=== PATIENT | male | born 1960 | race Hispanic/Latino ===

== ENCOUNTER 2018-03-07 08:12 | Emergency (ER) | payer OTHER ==
[~2018-03-07 08:12] MED LIST: LISINOPRIL20 M1 PO; MAVYRET 100-401 EACH PO; MELOXICAM15 M1 PO; STIOLTO RESPIMAT4 GM PO; TRIAMCINOLONE A60 ML TOP; [UNRECOGNIZED DRUG - OTHER]
--- NOTE | 2018-03-07 08:23 | ED MVC/FALL/TRAUMA COMPLAINT ---
History of Present Illness General Chief Complaint: General Adult Stated Complaint: LEFT SIDE RIB PAIN S/P FALL 12 STAIRS/CP Source: patient, family Exam Limitations: no limitations Vital Signs & Intake/Output Vital Signs & Intake/Output Vital Signs Date Time Temp Pulse Resp B/P B/P Pulse O2 O2 Flow FiO2 Mean Ox Delivery Rate 03/07 1231 98.6 75 20 136/75 98 Room Air 03/07 1026 98.8 60 20 140/75 99 Room Air 03/07 0821 97.0 71 18 123/72 98 Room Air Allergies Coded Allergies: codeine (Severe, NAUSEA 08/07/17) Reconcile Medications Lisinopril 20 MG TABLET 1 TAB PO DAILY HEART (Reported) Meloxicam 15 MG TABLET 1 TAB PO DAILY PAIN (Reported) Tiotropium Br/Olodaterol HCl (Stiolto Respimat Inhal [place]) 2.5 MCG-2.5 MCG/ ACTUATION MIST.INHAL 1 INH PO DAILY BREATHING PROBLEMS (Reported) Triage Nurses Notes Reviewed? yes Onset: Abrupt Duration: minute(s): Timing: single episode today Severity: moderate Injuries/Fall Location: chest, back Method of Injury: fall Loss of Consciousness: no loss of consciousness HPI: 57YO male with hx of HTN, hep C presents to ED after fall down a flight of stairs about 15 minutes prior to arrival. Patient is primarily uzbek speaking and his daughter is present who translates for him. Patient landed primarily on left side and is reporting left sided rib cage pain, worse with inspiration. Paitent also notes left back pain. The patient states he slipped on the carpet which caused him to fall. The patient denies head strike or LOC. The patient reports left elbow pain. The patient was admitted in the psych unit at [place] up until 2 days ago and he is taking a new medication which makes him weak, he believes this contributed to his fall, unknown name medication. Daughter states that the patient has not yet filled this prescription so he has been off the new med for 2 days since discharge from [place]. The patient denies headache, neck pain , abdominal pain, nausea. (Gilma NICK,Charlette Barry) Past History Travel History Traveled to [place] past 21 day No Medical History Any Pertinent Medical History? 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 No (Charlette Fihser) Review of Systems Review of Systems Constitutional: Reports: see HPI. Eyes: Reports: no symptoms. Ears, Nose, Throat, Mouth: Reports: no symptoms. Respiratory: Reports: see HPI. Cardiovascular: Reports: no symptoms. Gastrointestinal/Abdominal: Reports: no symptoms. Genitourinary: Reports: no symptoms. Musculoskeletal: Reports: see HPI. Skin: Reports: no symptoms. Neurological/Psychological: Reports: no symptoms. All Other Systems: Reviewed and Negative (Charlette Fisher) Physical Exam Physical Exam General Appearance: well developed/nourished, no apparent distress, alert, awake Head: atraumatic, normal appearance Eyes: Bilateral: normal appearance, PERRL, EOMI. 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 No CVA/TIA Diagnosis No Sepsis Present: No Sepsis Focused Exam Completed? No (Charlette Fisher) Progress Differential Diagnosis: aoritic dissection, abd injury, C/T/L spine injury, ext injury, ICH, pelvis injury, pnemothorax, spinal cord injury, ELECTROLYTE ABNORMALITY, ADVERSE MEDICATION REACTION, ANEMIA Plan of Care: Orders Procedure Date/time Status URINE DRUG SCREEN FOR ER ONLY 03/07 833 Complete URINALYSIS 03/07 833 Complete TROPONIN LEVEL 03/07 833 Complete ETHANOL 03/07 833 Complete COMPREHENSIVE METABOLIC PANEL 03/07 833 Complete CBC WITHOUT DIFFERENTIAL 03/07 833 Complete EKG 03/07 814 Active Laboratory Tests 03/07/18 1005: Urine Opiates Screen < 100, Methadone Screen < 40, Barbiturate Screen < 60, Ur Phencyclidine Scrn < 6.00, Amphetamines Screen < 100, U Benzodiazepines Scrn < 85, Urine Cocaine Screen < 50, Urine Cannabis Screen > 80.00 H, Urine Color YEL , Urine Clarity CLEAR, Urine pH 6.5, Ur Specific [place] <= 1.005, Urine Protein NEG, Urine Ketones NEG, Urine Nitrite NEG, Urine Bilirubin NEG, Urine Urobilinogen 0.2, Ur Leukocyte Esterase NEG, Ur Microscopic EXAM NOT REQUIRED, Urine Hemoglobin NEG, Urine Glucose NEG 03/07/18 0840: Anion Gap 9, Estimated GFR > 60, BUN/Creatinine Ratio 24.3, Glucose 129 H, Calcium 8.5, Total Bilirubin 0.5, AST 36, ALT 53, Alkaline Phosphatase 152 H, Troponin I < 0.01, Total Protein 6.0 L, Albumin 3.5, Globulin 2.5, Albumin/ Globulin Ratio 1.4, CBC w Diff NO MAN DIFF REQ, RBC 4.29 L, MCV 89.3, MCH 30.9, MCHC 34.6, RDW 13.1, MPV 10.8 H, Gran % 60.0, Lymphocytes % 20.9, Monocytes % 15.0 H, Eosinophils % 3.1, Basophils % 1.0, Absolute Granulocytes 4.3, Absolute Lymphocytes 1.5, Absolute Monocytes 1.1 H, Absolute Eosinophils 0.2, Absolute Basophils 0.1, Serum Alcohol < 10.[address] images are stable at this time. Labs are stable. Patient is sitting on stretcher in no acute distress. He is able to ambulate here in the emergency department without abnormality. Patient is comfortable going home at this time, pain is well controlled. The patient was seen and evaluated by Dr. Kulkarni who agrees with the plan of care. Diagnostic Imaging: Viewed by Me: CT Scan. Discussed w/RAD: CT Scan. Radiology Impression: PATIENT: LAMONT NUÑEZ PRESENT AGE: 57 PATIENT ACCOUNT NO: [id number] : 61 LOCATION: [facility] ORDERING PHYSICIAN: Charlette NICK SERVICE DATE: 03/07/18 EXAM TYPE: CAT - CT CERV SPINE WO IV CONTRAST; CT HEAD WO IV CONTRAST EXAMINATION: CT HEAD WITHOUT CONTRAST CT CERVICAL SPINE WITHOUT CONTRAST CLINICAL INFORMATION: Fall. Assess for intracranial hemorrhage or fracture. COMPARISON: None. TECHNIQUE: Multidetector CT imaging of the head and cervical spine was performed without the use of intravenous contrast. Coronal and sagittal reformatted images were generated at the technologist workstation. DLP: 983.11 mGy-cm. FINDINGS: CT head : There is no evidence of acute intracranial hemorrhage or territorial infarction. No abnormal mass-effect or midline shift is seen. Redman to white matter differentiation is well preserved. No extra-axial fluid collections are identified. The ventricles are normal in size. There is no abnormal attenuation within the brain parenchyma. There are no acute osseous findings. There are no large scalp contusions or hematomas. The mastoid air cells are well-aerated. There is minimal mucoperiosteal thickening in the anterior ethmoid sinuses bilaterally. There is mild hyperostosis frontalis interna and there are coarse calcifications the anterior falx. CT cervical spine: There is reversal of the cervical lordosis which is nonspecific and may be consistent with positioning or muscle spasm. There is narrowing of intervertebral disc height at C6-C7 with prominent right-sided marginal osteophytes. Vertebral body heights are maintained and no fractures our demonstrated. The lateral masses of C1 and C2 are normally aligned and the dens appears intact. There is normal alignment of the atlantooccipital articulations. The paravertebral structures are unremarkable. The imaged lung apices are clear. IMPRESSION: 1. There are no acute bleeds or territorial infarcts. There are no fractures or scalp contusions. No masses are demonstrated. 2. There are no acute fractures or subluxations in the cervical spine. 3. There are spondylitic changes at C6-C7. DICTATED BY: Dutch Perkins MD DATE/TIME DICTATED:03/07/181034 HAIR BLENDER :KRIS DATE/TIME TRANSCRIBED:03/07/181034 CONFIDENTIAL, DO NOT COPY WITHOUT APPROPRIATE AUTHORIZATION. <Electronically signed in Other Vendor System> SIGNED BY: Dutch Perkins MD 03/07/18 1046, PATIENT: LAMONT NUÑEZ PRESENT AGE: 57 PATIENT ACCOUNT NO: [id number] : LOCATION: [facility] ORDERING PHYSICIAN: Charlette NICK SERVICE DATE: 03/07/181860 EXAM TYPE: CAT - CT ABD & PELVIS W/O IV CONTRAS; CT CHEST WO IV CONTRAST EXAMINATION: CT CHEST WITHOUT CONTRAST CT ABDOMEN AND PELVIS WITHOUT CONTRAST CLINICAL INFORMATION: Status post fall downstairs. Assess for fracture, trauma or splenic injury. COMPARISON: CT scan of the abdomen and pelvis and CTA of the chest, abdomen and pelvis 08/07/2017. CT scan of the chest 06/11/2012. TECHNIQUE: Multidetector volumetric imaging was performed from the thoracic inlet through the pubic symphysis without intravenous or oral contrast. Sagittal and coronal reformatted images were obtained on the technologist's workstation. Axial MIP volume rendering provided. DLP: 436.21 mGy-cm. FINDINGS: CHEST: LUNGS: The lung nelson are moderately well-expanded. Linear opacities at the bases are consistent with atelectasis. There are no contusions or areas of focal consolidation. MEDIASTINUM: The thyroid gland appears normal. The central airways are patent. There is no hilar or mediastinal lymphadenopathy. The esophagus appears normal. The heart is not enlarged. PERICARDIUM/PLEURA: There are no pleural or pericardial effusions. CHEST WALL/AXILLA: There is irregularity of the lateral left lateral seventh and sixth ribs, consistent sequelae of prior trauma, demonstrated on prior imaging. There are no large chest wall hematomas, and there are no radiopaque foreign bodies. There are surgical clips around the proximal thoracic aorta, demonstrated on prior imaging. ABDOMEN/PELVIS: LIVER, GALLBLADDER, BILIARY TREE: The liver is normal in size, shape, and attenuation. No focal hepatic lesion or biliary ductal dilatation is present. The gallbladder is well-distended. Radiodense calculi are noted dependently toward the gallbladder neck, unchanged. There is no pericholecystic fluid. PANCREAS: Unremarkable. SPLEEN: The spleen has normal contour. There is a small focus of low attenuation in the central spleen, demonstrated on prior imaging. No perisplenic abnormal densities or fluid are noted. ADRENAL GLANDS: The adrenal glands are not enlarged. KIDNEYS AND URETERS: The kidneys are normal in size, shape, and attenuation. No hydronephrosis or hydroureter or calculi are seen. There is no perinephric stranding. BLADDER: The urinary bladder is moderately distended. GASTROINTESTINAL TRACT: The small and large bowel are unremarkable. The appendix is unremarkable. ABDOMINAL WALL: No hernia is demonstrated. LYMPH NODES: There is mild increased density in the mesenteric fat, which is nonspecific. There are multiple clips in the left groin , unchanged. There is no pelvic, abdominal or retroperitoneal lymphadenopathy. VASCULAR: As described above there are surgical clips around the proximal thoracic aorta. There are atheromatous calcifications of the distal abdominal aorta and there are calcifications in the iliac arteries. No aneurysms are demonstrated. PELVIC VISCERA: The prostate gland is not enlarged. There is no free fluid in the pelvis. OSSEOUS STRUCTURES: There is anatomic alignment of the vertebral bodies in the thoracic and lumbar spines. There is narrowing of intervertebral disc height with marginal osteophytes at T8-T9 and T9-T10. Vertebral body heights are maintained and there are no compression fractures. There are multilevel degenerative changes in the thoracic spine. There is slight irregularity of the superior margin of the left acetabulum, consistent with posttraumatic or degenerative changes. IMPRESSION: 1. There are no acute cardiopulmonary findings. There are sequelae of old traumatic changes in the left lateral ribs. 2. An area of low attenuation in the spleen was present on prior imaging. There is no perisplenic fluid. 3. Gallstones without evidence of acute cholecystitis are redemonstrated. 4. There is mild increased density in the mesenteric fat which is nonspecific. DICTATED BY: Dutch Perkins MD DATE/TIME DICTATED:03/07/181100 HAIR BLENDER:KRIS DATE/TIME TRANSCRIBED:1100 CONFIDENTIAL, DO NOT COPY WITHOUT APPROPRIATE AUTHORIZATION. < Electronically signed in Other Vendor System> SIGNED BY: Dutch Perkins MD 1125 Initial ED EKG: SINUS RHYTHM @67BPM Prior EKG: changed (08/07/17 - BRADYCARDIA) (Gilma NICK,Charlette Barry) Departure Departure Disposition: HOME OR SELF CARE Condition: Stable Clinical Impression Primary Impression: Fall Qualifiers: Encounter type: initial encounter Qualified Code: W19.XXXA - Unspecified fall, initial encounter Referrals: Dunia Artis APRN (PCP/Family) Additional Instructions: You may take Tylenol or ibuprofen as prescribed as needed for your pain. Follow -up with your primary care physician. Return if have any worsening symptoms or concerns including increasing pain, difficulty breathing, headache, vomiting, coughing up mucus or blood. Please note that there might be incidental findings in your evaluation that are unrelated to the current emergency department visit. Please notify your primary care doctor about this emergency department visit in order to obtain and review all of the testing performed so that these incidental findings can be monitored as needed. If you had an x-ray performed, please understand that some fractures may not be seen on the initial set of x-rays. If your symptoms persist you might need a repeat set of x-rays to check for such a fracture. If you had a laceration evaluated, please understand that foreign bodies such as glass or wood may not be visible to the naked eye or on plain x-rays. If the wound becomes red, swollen, increasingly more painful or if there is any drainage from the wound, please have it reevaluated by a physician for the possibility of a retained foreign body. If you're unable to follow up as outlined in the discharge instructions please return to the emergency department. Thank you for choosing the [facility] Emergency Department for your care. It was a pleasure to serve you today. Departure Forms: Customer Survey General Discharge Information (Gilma NICK,Charlette Barry) PA/ARMATURE VARNISHER Co-Sign Statement Statement: ED Attending supervision documentation- [X] I saw and evaluated the patient. I have also reviewed all the pertinent lab results and diagnostic results. I agree with the findings and the plan of care as documented in the PA's/ARMATURE VARNISHER's documentation. [] I have reviewed the ED Record and agree with the PA's/ARMATURE VARNISHER's documentation. [] Additions or exceptions (if any) to the PAs/ARMATURE VARNISHER's note and plan are summarized below: [] (Greg Kulkarni DO
[2018-03-07 08:49] LABS: ABSOLUTE BASOPHIL COUNT 0.1 /CUMM (0.0-0.2); ABSOLUTE EOSINOPHIL COUNT 0.2 /CUMM (0.0-0.7); ABSOLUTE GRANULOCYTE CT 4.3 /CUMM (1.4-6.5); ABSOLUTE LYMPH COUNT 1.5 /CUMM (1.2-3.4); ABSOLUTE MONOCYTE COUNT 1.1 /CUMM (0.10-0.60); EOSINOPHIL % 3.1 % (0-5); HEMATOCRIT 38.3 % (42-52); MEAN CORPUSCULAR HGB 30.9 PG (27.0-31.0); MEAN CORPUSCULAR HGB CONC 34.6 G/DL (33.0-37.0); MEAN CORPUSCULAR VOLUME 89.3 FL (80.0-94.0); MEAN PLATELET VOLUME 10.8 FL (7.4-10.4); PLATELET COUNT 114 /CUMM (130-400); RBC DISTRIBUTION WIDTH 13.1 % (11.5-14.5); RED BLOOD CELL CT 4.29 /CUMM (4.70-6.10); WHITE BLOOD CELL COUNT 7.2 /CUMM (4.8-10.8)
--- NOTE | 2018-03-07 10:46 | CT SCAN REPORT ---
EXAMINATION: CT HEAD WITHOUT CONTRAST CT CERVICAL SPINE WITHOUT CONTRAST CLINICAL INFORMATION: Fall. Assess for intracranial hemorrhage or fracture. COMPARISON: None. TECHNIQUE: Multidetector CT imaging of the head and cervical spine was performed without the use of intravenous contrast. Coronal and sagittal reformatted images were generated at the technologist workstation. DLP: 983.11 mGy-cm. FINDINGS: CT head: There is no evidence of acute intracranial hemorrhage or territorial infarction. No abnormal mass-effect or midline shift is seen. Redman to white matter differentiation is well preserved. No extra-axial fluid collections are identified. The ventricles are normal in size. There is no abnormal attenuation within the brain parenchyma. There are no acute osseous findings. There are no large scalp contusions or hematomas. The mastoid air cells are well-aerated. There is minimal mucoperiosteal thickening in the anterior ethmoid sinuses bilaterally. There is mild hyperostosis frontalis interna and there are coarse calcifications the anterior falx. CT cervical spine: There is reversal of the cervical lordosis which is nonspecific and may be consistent with positioning or muscle spasm. There is narrowing of intervertebral disc height at C6-C7 with prominent right-sided marginal osteophytes. Vertebral body heights are maintained and no fractures our demonstrated. The lateral masses of C1 and C2 are normally aligned and the dens appears intact. There is normal alignment of the atlantooccipital articulations. The paravertebral structures are unremarkable. The imaged lung apices are clear. IMPRESSION: 1. There are no acute bleeds or territorial infarcts. There are no fractures or scalp contusions. No masses are demonstrated. 2. There are no acute fractures or subluxations in the cervical spine. 3. There are spondylitic changes at C6-C7.
--- NOTE | 2018-03-07 11:25 | CT SCAN REPORT ---
EXAMINATION: CT CHEST WITHOUT CONTRAST CT ABDOMEN AND PELVIS WITHOUT CONTRAST CLINICAL INFORMATION: Status post fall downstairs. Assess for fracture, trauma or splenic injury. COMPARISON: CT scan of the abdomen and pelvis and CTA of the chest, abdomen and pelvis 08/07/2017. CT scan of the chest 06/11/2012. TECHNIQUE: Multidetector volumetric imaging was performed from the thoracic inlet through the pubic symphysis without intravenous or oral contrast. Sagittal and coronal reformatted images were obtained on the technologist's workstation. Axial MIP volume rendering provided. DLP: 436.21 mGy-cm. FINDINGS: CHEST: LUNGS: The lung nelson are moderately well-expanded. Linear opacities at the bases are consistent with atelectasis. There are no contusions or areas of focal consolidation. MEDIASTINUM: The thyroid gland appears normal. The central airways are patent. There is no hilar or mediastinal lymphadenopathy. The esophagus appears normal. The heart is not enlarged. PERICARDIUM/PLEURA: There are no pleural or pericardial effusions. CHEST WALL/AXILLA: There is irregularity of the lateral left lateral seventh and sixth ribs, consistent sequelae of prior trauma, demonstrated on prior imaging. There are no large chest wall hematomas, and there are no radiopaque foreign bodies. There are surgical clips around the proximal thoracic aorta, demonstrated on prior imaging. ABDOMEN/PELVIS: LIVER, GALLBLADDER, BILIARY TREE: The liver is normal in size, shape, and attenuation. No focal hepatic lesion or biliary ductal dilatation is present. The gallbladder is well-distended. Radiodense calculi are noted dependently toward the gallbladder neck, unchanged. There is no pericholecystic fluid. PANCREAS: Unremarkable. SPLEEN: The spleen has normal contour. There is a small focus of low attenuation in the central spleen, demonstrated on prior imaging. No perisplenic abnormal densities or fluid are noted. ADRENAL GLANDS: The adrenal glands are not enlarged. KIDNEYS AND URETERS: The kidneys are normal in size, shape, and attenuation. No hydronephrosis or hydroureter or calculi are seen. There is no perinephric stranding. BLADDER: The urinary bladder is moderately distended. GASTROINTESTINAL TRACT: The small and large bowel are unremarkable. The appendix is unremarkable. ABDOMINAL WALL: No hernia is demonstrated. LYMPH NODES: There is mild increased density in the mesenteric fat, which is nonspecific. There are multiple clips in the left groin, unchanged. There is no pelvic, abdominal or retroperitoneal lymphadenopathy. VASCULAR: As described above there are surgical clips around the proximal thoracic aorta. There are atheromatous calcifications of the distal abdominal aorta and there are calcifications in the iliac arteries. No aneurysms are demonstrated. PELVIC VISCERA: The prostate gland is not enlarged. There is no free fluid in the pelvis. OSSEOUS STRUCTURES: There is anatomic alignment of the vertebral bodies in the thoracic and lumbar spines. There is narrowing of intervertebral disc height with marginal osteophytes at T8-T9 and T9-T10. Vertebral body heights are maintained and there are no compression fractures. There are multilevel degenerative changes in the thoracic spine. There is slight irregularity of the superior margin of the left acetabulum, consistent with posttraumatic or degenerative changes. IMPRESSION: 1. There are no acute cardiopulmonary findings. There are sequelae of old traumatic changes in the left lateral ribs. 2. An area of low attenuation in the spleen was present on prior imaging. There is no perisplenic fluid. 3. Gallstones without evidence of acute cholecystitis are redemonstrated. 4. There is mild increased density in the mesenteric fat which is nonspecific.
[2018-03-07 12:31] VITALS: BP 136/75
== END 2018-03-07 12:39 ==
LOC: ERH 08:12
PROVIDERS: Physician Assistant
DX: R07.81 Pleurodynia (principal); M54.9 Dorsalgia, unspecified; M25.522 Pain in left elbow; I10 Essential (primary) hypertension; J45.909 Unspecified asthma, uncomplicated; B19.20 Unspecified viral hepatitis C without hepatic coma
CPT/HCPCS: 74176; 80307; 81003; 93005; 93010; 96374; G0480; J0131